=== PATIENT | male | born 1995 | race Caucasian/White ===

== ENCOUNTER 2016-11-12 19:44 | Emergency (ER) | payer OTHER ==
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
[2016-11-12 20:58] VITALS: BP 134/88
== END 2016-11-12 20:58 | disposition left against medical advice (07) ==
LOC: MW.ED 19:44
DX: M62.830 Muscle spasm of back (principal); V49.88XA Car occupant (driver) (passenger) injured in other specified transport accidents, initial encounter; Y92.410 Unspecified street and highway as the place of occurrence of the external cause
CPT/HCPCS: 36415; 85025; 99283; 99284